=== PATIENT | male | born 1990 | race Caucasian/White ===

== ENCOUNTER 2017-04-04 06:52 | Emergency (ER) | payer BC, OTHER ==
[~2017-04-04] VITALS: Ht 172.7 cm; Wt 90.9 kg
[2017-04-04 06:55] VITALS: BP 126/85
== END 2017-04-04 08:11 | disposition home or self-care (01) ==
LOC: ED 07:44
DX: S93.431A Sprain of tibiofibular ligament of right ankle, initial encounter (principal); X50.9XXA Other and unspecified overexertion or strenuous movements or postures, initial encounter; Y93.89 Activity, other specified; Y99.8 Other external cause status; Y92.009 Unspecified place in unspecified non-institutional (private) residence as the place of occurrence of the external cause